=== PATIENT | female | born 1985 | race Caucasian/White ===

== ENCOUNTER 2018-09-12 11:24 | Emergency (ER) | payer MEDICAID, OTHER ==
--- NOTE | 2018-09-12 16:52 | C.PDOC ---
History Of Present Illness Patient eloped before evaluation and treatment. Chief Complaint (Nursing): Back Pain Past Medical History - [facility] Procedures LAPAROSCOP UNILAT OOPHORECTOMY (06/05/14) REMOV TUBE & ECTOP PREG (06/05/14) Family History: States: Unknown Family Hx - Social History Hx Tobacco Use: Yes Hx Alcohol Use: No Hx Substance Use: No - Immunization History Hx Tetanus Toxoid Vaccination: No Hx Influenza Vaccination: No Hx Pneumococcal Vaccination: No Disposition - Disposition Disposition: ELOPEMENT - ER ONLY Disposition Time: 12:00 Condition: UNKNOWN Forms: [facility] ([place]z) - Clinical Impression Clinical Impression: Neck pain
== END 2018-09-12 13:24 | disposition left against medical advice (07) ==
LOC: C.ER 11:24
DX: Z02.89 Encounter for other administrative examinations (principal); M54.2 Cervicalgia